=== PATIENT | female | born 1940 ===

== ENCOUNTER → 2018-06-12 14:20 | Outpatient (REF) | payer MEDICARE, SELFPAY | LOC: LAB 14:20 | PROVIDERS: Visit Provider Dermatology | DX: L72.0 Epidermal cyst (principal); L53.8 Other specified erythematous conditions; Z78.9 Other specified health status; L98.0 Pyogenic granuloma; L72.8 Other follicular cysts of the skin and subcutaneous tissue | CPT/HCPCS: 87070; 87075; 87077; 87147; 87186; 87205 ==